=== PATIENT | female | born 1980 | race Caucasian/White ===

== ENCOUNTER 2017-06-20 17:41 | Emergency (ER) | payer OTHER ==
[2017-06-20] MEDS: KETOROLAC 30 MG INJ IM (20:32)
== END 2017-06-20 22:02 | disposition home or self-care (01) ==
LOC: FTE 17:41
DX: K02.9 Dental caries, unspecified (principal); M79.603 Pain in arm, unspecified
CPT/HCPCS: 73030; 93005; 96372; 99284-25